=== PATIENT | female | born 2000 | race Caucasian/White ===

== ENCOUNTER 2022-11-18 12:00 | Emergency (ER) | payer OTHER ==
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
[2022-11-18] MEDS ORDERED: NS 100 ML (IVPB) BAG IV ONE (12:30)
[2022-11-18] MEDS ORDERED: HOLD METFORMIN - RECEIVED CONTRAST 20 ML VIAL IV SCH (12:30)
[2022-11-18] MEDS ORDERED: IOHEXOL 350 MG/ML 100 ML (OMNIPAQUE 350) VIAL IV ONE (12:30)
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
[2022-11-18] MEDS ORDERED: fentaNYL INJ 100 MCG/2 ML AMP IVP STA (13:01)
--- NOTE | 2022-11-18 13:03 | Diagnostic Imaging Report ---
PROCEDURE: CT chest, abdomen, and pelvis with contrast. TECHNIQUE: Multiple contiguous axial images were obtained through the chest, abdomen, and pelvis after the administration of intravenous contrast. Auto Exposure Controls were utilized during the CT exam to meet ALARA standards for radiation dose reduction. INDICATION: Head, neck, and abdominal pain. COMPARISON: No priors. FINDINGS: CHEST: No findings of lung contusion, aspiration, or pneumonia. No hemothorax or pneumothorax. The thoracic aorta is patent, intact, and nonacute. No pericardial or mediastinal hemorrhage. No chest wall hematoma. Sternum, manubrium, spine, and diaphragm appeared intact. The visible structures of the shoulder and the ribs were nonacute. There is no mass or adenopathy. ABDOMEN AND PELVIS: There is no free fluid. There were no findings of hemoperitoneum. No retroperitoneal hemorrhage. No pneumatosis or free gas. No findings of visceral perforation. No mesenteric or focal bowel wall hematoma. The bony pelvis and hips appeared nonacute. The lumbar spine appeared unremarkable. Liver, spleen, adrenals, and pancreas are unremarkable. There is a nonobstructing 2 mm right lower pole renal calculus. There is no hydroureteronephrosis. No renal laceration. Spleen, adrenals, and pancreas are unremarkable. The contracted gallbladder is unremarkable. The aorta is nonaneurysmal. There is no appendicitis or diverticulitis. No ileus or bowel obstruction. No abdominal wall hernia defect or rectus sheath collection. The uterus and adnexa appeared nonacute. Urinary bladder appeared unremarkable. IMPRESSION: 1. No injury or acute abnormality identified at CT chest, abdomen, and pelvis. 2. Nephrolithiasis, nonobstructing. Dictated by: Dictated on workstation # [id number]
[2022-11-18 13:11] LABS: BASOPHILS % (AUTO) 0 % (0-10); EOSINOPHILS # (AUTO) 0.1 10^3/uL (0.0-0.3); EOSINOPHILS % (AUTO) 1 % (0-10); HEMATOCRIT 36 % (35-52); HEMOGLOBIN 11.8 g/dL (11.5-16.0); LYMPHOCYTES # (AUTO) 1.7 10^3/uL (1.0-4.0); LYMPHOCYTES % (AUTO) 17 % (12-44); MEAN CORPUSCULAR HEMOGLOBIN 28 pg (25-34); MEAN CORPUSCULAR HGB CONC 33 g/dL (32-36); MEAN CORPUSCULAR VOLUME 86 fL (80-99); MEAN PLATELET VOLUME 8.8 fL (9.0-12.2); MONOCYTES # (AUTO) 0.6 10^3/uL (0.0-1.0); MONOCYTES % (AUTO) 6 % (0-12); NEUTROPHILS # (AUTO) 7.7 10^3/uL (1.8-7.8); NEUTROPHILS % (AUTO) 76 % (42-75); PLATELET COUNT 338 10^3/uL (130-400); WHITE BLOOD COUNT 10.1 10^3/uL (4.3-11.0)
[2022-11-18] MEDS ORDERED: ACHD5005 PO (13:25)
[2022-11-18] MEDS ORDERED: CYCL10TA25 PO (13:25)
[2022-11-18] MEDS ORDERED: NAPR-915 PO (13:25)
[2022-11-18 13:31] LABS: ALBUMIN 3.7 GM/DL (3.2-4.5)
[2022-11-18 13:33] LABS: TOTAL PROTEIN 6.7 GM/DL (6.4-8.2)
[2022-11-18 13:35] LABS: BILIRUBIN,TOTAL 0.2 MG/DL (0.1-1.0)
[2022-11-18 13:37] LABS: CREATININE SERUM 0.77 MG/DL (0.60-1.30); PROTHROMBIN TIME PATIENT 13.8 SEC (12.2-14.7)
[2022-11-18 13:55] VITALS: BP 144/84
== END 2022-11-18 13:55 | disposition home or self-care (01) ==
LOC: EDUNIT# 12:11 → ER 12:13
DX: M54.50 Low back pain, unspecified (principal); M54.6 Pain in thoracic spine; M54.2 Cervicalgia; R10.32 Left lower quadrant pain; V48.5XXA Car driver injured in noncollision transport accident in traffic accident, initial encounter; Y92.828 Other wilderness area as the place of occurrence of the external cause
CPT/HCPCS: 36415; 70450; 71260; 72125; 72128; 72131; 74177; 80053; 84703; 85025; 85610; 85730